=== PATIENT | female | born 1960 | race Caucasian/White ===

== ENCOUNTER → 2018-10-11 | Outpatient (CLI) | payer BC ==
--- NOTE | 2018-10-11 13:18 | KCIC ---
MRI Cervical Spine Without Contrast History: Cervicalgia, right upper radiculopathy since September 2018 Technique: Multiplanar, multi sequential noncontrast MR imaging was performed of the cervical spine. Comparison: None Findings: There is prominent motion degradation. Cervical cord is not expanded, cannot accurately evaluate for cord signal abnormality due to degree of motion. Cervical vertebral body stature and AP alignment are within normal limits. There is very mild reversal of the lordotic curvature centered near C5-6. There is mild degenerative disc disease C5-6, mild disc desiccation at other levels. There is large hemangioma of the C7 vertebral body. C2-C3: There is right facet degenerative change. Spinal canal and left neural foramen are adequate, likely [id number] narrowing of the right neural foramen although poorly characterized due to motion. C3-C4: There is negligible disc osteophyte complex. Spinal canal is overall adequate. Left neural foramen is adequate. There is right facet degenerative change and possible right uncovertebral degenerative change resulting in probable moderate to severe narrowing of the right neural foramen although poorly characterized due to motion. C4-C5: There is negligible disc osteophyte complex. Spinal canal is adequate. Neural foramina are overall adequate. C5-C6: There is minimal disc osteophyte complex and bulge. Central canal is probably narrowed to about 8 to 9 mm although poorly characterized due to motion. Right neural foramen is probably adequate, possible at least mild narrowing of the left neural foramen in part from uncovertebral degenerative change. C6-C7: There is minimal disc osteophyte complex, central canal not significantly narrowed about 11 mm. Right neural foramen is adequate. There may be left uncovertebral degenerative change contributing to moderate narrowing of the left neural foramen in combination with facet degenerative change although poorly characterized due to motion. C7-T1: Spinal canal is adequate. Neural foramina are not convincingly narrowed. Impression: 1. Exam is degraded by motion. There is suspected mild spinal stenosis at C5-6. There is mild degenerative disc disease greatest at C5-6, mild spondylosis. 2. There is facet and uncovertebral degenerative change contributing to neural foramina compromise which is suboptimally characterized due to motion. Narrowing is likely greatest on the right at C3-C4, lesser degree of narrowing on the left at C6-C7 and C5-C6 and on the right at C2-C3. Electronically signed by: Roland Lopez MD (10/11/2018 1:13 PM) [id number]
== END | disposition home or self-care (01) ==
LOC: KCIC MRI 12:08
PROVIDERS: ATTEND Physician Assistant
DX: M50.122 Cervical disc disorder at C5-C6 level with radiculopathy (principal); M47.22 Other spondylosis with radiculopathy, cervical region; M48.02 Spinal stenosis, cervical region; M25.78 Osteophyte, vertebrae; D18.09 Hemangioma of other sites
CPT/HCPCS: 72141